=== PATIENT | female | born 1985 | race Caucasian/White ===

== ENCOUNTER 2022-09-17 23:47 | Emergency (ER) | payer OTHER ==
[~2022-09-17] VITALS: Ht 149.9 cm; Wt 75.3 kg
[2022-09-18] MEDS ORDERED: IBUPROFEN 600MG TAB PO ONE (00:30)
[2022-09-18] MEDS ORDERED: AUGMENTIN 875 MG TAB PO ONE (00:30)
[2022-09-18] MEDS ORDERED: LIDOCAINE 1% MDV 20ML VIAL IM ONE (00:30)
[2022-09-18] MEDS ORDERED: BOOSTRIX VACCINE (TETANUS/DIPHTH/ACEL. PERTUSSIS) 0.5ML SYR IM ONE (00:30)
[2022-09-18] MEDS ORDERED: IBUP-1022 PO (00:46)
[2022-09-18] MEDS ORDERED: AMOX875T2 PO (00:46)
[2022-09-18 01:33] VITALS: BP 150/88; TEMP 98.4; O2SAT 97
== END 2022-09-18 01:36 | disposition home or self-care (01) ==
LOC: M ED 23:47
DX: S61.431A Puncture wound without foreign body of right hand, initial encounter (principal); W54.0XXA Bitten by dog, initial encounter; Y92.009 Unspecified place in unspecified non-institutional (private) residence as the place of occurrence of the external cause; Z79.2 Long term (current) use of antibiotics; Z79.1 Long term (current) use of non-steroidal anti-inflammatories (NSAID); Z23 Encounter for immunization